=== PATIENT | female | born 1965 | race American Indian/Alaskan Native ===

== ENCOUNTER 2021-03-23 00:32 | Emergency (ER) | payer MEDICAID ==
[2021-03-23 01:26] VITALS: BP 153/84
[2021-03-23] MEDS ORDERED: SODIUM CHLORIDE 0.9% 1000 ML 1,000 ML ONE (03:11)
[2021-03-23] MEDS ORDERED: ACETAMINOPHEN 500 MG TAB PO ONE (04:01)
[2021-03-23] MEDS ORDERED: predniSONE 20 MG TAB PO ONE (04:01)
--- NOTE | 2021-03-23 04:39 | Emergency Department Report ---
ED Extremity Problem HPI - General Chief complaint: Extremity Problem,Nontraumatic Stated complaint: KNEE PAIN X2 DAYS Source: patient, EMS Mode of arrival: Wheelchair Limitations: No Limitations - History of Present Illness Initial comments: Patient is a 56-year-old -[place] female with a history of hypertension, iaj-knqtdfo-pyasbrxpb diabetes, paranoid schizophrenia and chronic osteoarthritis who presents to the ED with acute exacerbation of her chronic right knee pain after strenuous activity, painting for 2 days. Patient states that the pain is worse with any ambulation or any palpation of the right knee joint. Patient states that she usually takes naproxen tablets for her pain but that the current pain has not been controlled by her regular pain medication at home. Patient denies fall, traumatic injury, dizziness, syncope, chest pain, shortness of breath, fever, chills, nausea and vomiting, heavy lifting, low back pain or hip pain. MD Complaint: extremity pain (right knee), joint paint (right knee pain) -: Sudden, days(s) (2) Location: right (knee), lower extremity (right knee pain), knee (right knee) History of Same: Yes (chronic) -: Yes arthralgia (right knee), No fever, No associated dyspnea, No associated chest pain Radiation: none Severity scale (0 -10): 7 Quality: aching, sharp Consistency: constant Improves with: rest Worsens with: weight bearing, walking, exertion, palpation Associated Symptoms: denies other symptoms, arthralgias (right knee joint pain). denies: chest pain, shortness of breath, fever, myalgias, rash - Related Data Previous Rx's Medication Instructions Recorded Last Taken Type Baclofen 20 mg PO Q12H PRN #20 tablet 03/23/21 Unknown Rx Diclofenac Sodium 75 mg PO Q8H PRN #30 tablet. 03/23/21 Unknown Rx Allergies Allergy/AdvReac Type Severity Reaction Status Date / Time aspirin Allergy Nausea Verified 03/23/21 03:16 ED Review of Systems ROS: Stated complaint: KNEE PAIN X2 DAYS Other details as noted in HPI Constitutional: denies: chills, fever Eyes: denies: eye pain, eye discharge, vision change ENT: denies: ear pain, throat pain Respiratory: denies: cough, shortness of breath, wheezing Cardiovascular: denies: chest pain, palpitations Endocrine: no symptoms reported Gastrointestinal: denies: abdominal pain, nausea, diarrhea Genitourinary: denies: urgency, dysuria, discharge Musculoskeletal: arthralgia (Right knee pain), myalgia. denies: back pain, joint swelling Skin: denies: rash, lesions Neurological: denies: headache, weakness, paresthesias Psychiatric: denies: anxiety, depression Hematological/Lymphatic: denies: easy bleeding, easy bruising ED Past Medical Hx - Past Medical History Previous Medical History?: Yes Hx Hypertension: Yes Hx Diabetes: Yes (borderline) Hx Psychiatric Treatment: Yes (Paranoid Schizophrenia) - Surgical History Past Surgical History?: Yes Additional Surgical History: Hysterectomy - Medications Home Medications: Home Medications Medication Instructions Recorded Confirmed Last Taken Type Baclofen 20 mg PO Q12H PRN #20 tablet 03/23/21 Unknown Rx Diclofenac Sodium 75 mg PO Q8H PRN #30 tablet. 03/23/21 Unknown Rx ED Physical Exam - General Limitations: No Limitations General appearance: alert, in no apparent distress - Head Head exam: Present: atraumatic, normocephalic, normal inspection - Eye Eye exam: Present: normal appearance, PERRL, EOMI Pupils: Present: normal accommodation - ENT ENT exam: Present: normal exam, normal orophraynx, mucous membranes moist, TM's normal bilaterally, normal external ear exam - Neck Neck exam: Present: normal inspection, full ROM. Absent: tenderness - Respiratory Respiratory exam: Present: normal lung sounds bilaterally. Absent: respiratory distress, wheezes, rales, rhonchi, chest wall tenderness, accessory muscle use, decreased breath sounds, prolonged expiratory - Cardiovascular Cardiovascular Exam: Present: regular rate, normal rhythm, normal heart sounds. Absent: systolic murmur, diastolic murmur, rubs, gallop - GI/Abdominal GI/Abdominal exam: Present: soft, normal bowel sounds. Absent: tenderness, guarding, rebound, rigid, hyperactive bowel sounds, hypoactive bowel sounds, organomegaly - Extremities Exam Extremities exam: Present: normal inspection, tenderness (Palpable right knee tenderness with limited range of motion due to pain), normal capillary refill. Absent: full ROM (Limited range of motion of right knee joint due to pain) - Back Exam Back exam: Present: normal inspection, full ROM. Absent: tenderness, CVA tenderness (R), CVA tenderness (L), muscle spasm, paraspinal tenderness, vertebral tenderness - Neurological Exam Neurological exam: Present: alert, oriented X3, CN II-XII intact, normal gait, reflexes normal - Psychiatric Psychiatric exam: Present: normal affect, normal mood - Skin Skin exam: Present: warm, dry, intact, normal color. Absent: rash ED Course Vital Signs 03/23/21 01:23 Temperature 98.2 F Pulse Rate 89 Respiratory 17 Rate Blood Pressure 153/84 O2 Sat by Pulse 97 Oximetry ED Medical Decision Making - Radiology Data Radiology results: report reviewed, image reviewed [facility] [address] [place] [address] XRay Report Signed Patient: MYRTLE EVANS MR#: [id number] : 1965 Acct:[id number] Age/Sex: 56 / F ADM Date: 03/23/21 Loc: ED Attending Dr: Ordering Physician: LUISANA HERRING Date of Service: 03/23/21 Procedure(s): XR knee 3V RT Accession Number(s): [id number] cc: LUISANA HERRING Fluoro Time In Minutes: Right knee 3 views INDICATION: Knee pain FINDINGS: There is tricompartmental degenerative change with joint space narrowing in the medial compartment and patellofemoral joint. No acute fracture dislocation. IMPRESSION: Degenerative change in right knee Signer Name: Zia Alvarez MD Signed: 03/23/2021 4:37 AM Workstation Name: [id number] Transcribed By: CW Dictated By: ROBBI ALVAREZ MD Electronically Authenticated By: ROBBI ALVAREZ MD Signed Date/Time: 03/23/21436 DD/ 6 TD/TT: - Medical Decision Making This is a 56-year-old -[place] female with a history of hypertension, onh-jidkxie-gtbghjavg diabetes, paranoid schizophrenia and chronic osteoarthritis who presents to the ED with acute exacerbation of her chronic right knee pain after strenuous activity, painting for 2 days. Patient states that the pain is worse with any ambulation or any palpation of the right knee joint. Patient states that she usually takes naproxen tablets for her pain but that the current pain has not been controlled by her regular pain medication at home. In the ED, patient is alert and oriented x3 and is not in any distress. Patient was treated in the ED for pain and right knee x-ray showed no acute fractures or subluxations but degenerative joint disease. Patient right knee was splinted with Julio Cesar wrap and the patient was discharged home on pain medications and advised to follow-up with her primary care physician in 7 to 10 days for reevaluation or return to the ED immediately if symptoms get worse. - Differential Diagnosis Right knee sprain; chronic osteoarthritis; muscle strain of right knee; Critical care attestation.: If time is entered above; I have spent that time in minutes in the direct care of this critically ill patient, excluding procedure time. ED Disposition Clinical Impression: Osteoarthritis of right knee Qualifiers: Osteoarthritis type: primary Qualified Code(s): M17.11 - Unilateral primary osteoarthritis, right knee Sprain of right knee Qualifiers: Encounter type: initial encounter Involved ligament of knee: unspecified ligament Qualified Code(s): S83.91XA - Sprain of unspecified site of right knee, initial encounter Disposition: TO HOME OR SELFCARE Is pt being admited?: No Does the pt Need Aspirin: No Condition: Stable Instructions: Arthritis, Jqwu-[id number], Knee Sprain, Adult, [id number]-[id number] Additional Instructions: Right knee x-ray showed no acute fractures or subluxation but chronic degenerative joint disease. Therefore take medications with food, drink plenty of fluids and follow-up with your primary care physician in 5 to 7 days for reevaluation. Return to the ED immediately if symptoms get worse. Prescriptions: Baclofen 20 mg PO Q12H PRN #20 tablet PRN Reason: Muscle Spasm Diclofenac Sodium 75 mg PO Q8H PRN #30 tablet.dr ALLISON Reason: Pain , Severe (7-10) Referrals: [facility] [Provider Group] - 7-10 days Time of Disposition: 04:42 Print Language: FRISIAN
--- NOTE | 2021-03-23 04:42 | XRay Report ---
Right knee 3 views INDICATION: Knee pain FINDINGS: There is tricompartmental degenerative change with joint space narrowing in the medial comp artment and patellofemoral joint. No acute fracture dislocation. IMPRESSION: Degenerative change in right knee Signer Name: Zia Alvarez MD Signed: 03/23/2021 4:37 AM Workstation Name: [id number]
== END 2021-03-23 05:00 | disposition home or self-care (01) ==
LOC: ED 00:32
DX: S83.91XA Sprain of unspecified site of right knee, initial encounter (principal); M17.11 Unilateral primary osteoarthritis, right knee; I10 Essential (primary) hypertension; E11.9 Type 2 diabetes mellitus without complications; Z88.8 Allergy status to other drugs, medicaments and biological substances; Z79.899 Other long term (current) drug therapy; Z90.710 Acquired absence of both cervix and uterus; X58.XXXA Exposure to other specified factors, initial encounter; Y93.89 Activity, other specified; Y92.89 Other specified places as the place of occurrence of the external cause; Y99.8 Other external cause status
CPT/HCPCS: 29505; 73562; 99284; J7030; J7512

== ENCOUNTER 2021-06-27 01:21 | Emergency (ER) | payer MEDICAID ==
[2021-06-27] MEDS ORDERED: ACETAMINOPHEN 325 MG TAB PO ONE (03:23)
[2021-06-27] MEDS ORDERED: IBUPROFEN 400 MG TAB PO ONE (03:24)
--- NOTE | 2021-06-27 03:25 | Emergency Department Report ---
ED Lower Extremity HPI - General Chief Complaint: Extremity Injury, Lower Stated Complaint: left ankle, right knee pain Time Seen by Provider: 06/27/21 03:09 Source: patient, EMS ( EMS documentation not available at time of chart dictation ), RN notes reviewed Mode of arrival: Ambulatory Limitations: Physical Limitation - History of Present Illness Initial Comments: The patient was evaluated in the emergency department for symptoms described in the history of present illness. He/she was evaluated in the context of the global COVID-19 pandemic, which necessitated consideration that the patient might be at risk for infection with the virus that causes COVID-19. Institutional protocols and algorithms that pertain to the evaluation of patients at risk for COVID-19 are in a state of rapid change based on information released by regulatory bodies including the CDC and federal and state organizations. These policies and algorithms were followed during the patient's care in the emergency department. Please note that these policies, procedures and recommendations changed on a rapid basis. The patient is a 56-year-old female, presenting to the ER with a complaint of left ankle pain, and right knee pain, after accidental mechanical fall. The patient reports she was walking downstairs and fell onto her ankle and left knee. She denies additional injuries and complaints. Her pain is sharp and throbbing. It increases with palpation and decreases with rest. It does not radiate anywhere. No weakness or numbness. No additional complaints. Has not taking analgesia [id number]-gon-ilqgsmn. Is able to tolerate Motrin/ibuprofen/diclofenac. Complaint: knee injury, ankle injury -: Sudden, minutes(s) Injury: Knee: Left, Ankle: Left Type of Injury: blunt Place: home Severity: moderate Improves With: rest Worsens With: movement, palpation Context: fall Associated Symptoms: swelling. denies: numbness, tingling - Related Data Previous Rx's Medication Instructions Recorded Last Taken Type Acetaminophen [Non-Aspirin Extra 500 mg PO Q6HR PRN #30 tablet 06/27/21 Unknown Rx Strength] Ibuprofen [Motrin] 600 mg PO Q8H PRN #30 tablet 06/27/21 Unknown Rx Allergies Allergy/AdvReac Type Severity Reaction Status Date / Time aspirin Allergy Nausea Verified 03/23/21 03:16 ED Review of Systems ROS: Stated complaint: RIGHT KNEE PAIN Other details as noted in HPI Constitutional: denies: fever Eyes: denies: eye discharge ENT: denies: epistaxis Respiratory: denies: cough Cardiovascular: denies: chest pain Gastrointestinal: denies: abdominal pain Musculoskeletal: joint swelling, arthralgia, myalgia ED Past Medical Hx - Past Medical History Hx Hypertension: Yes Hx Diabetes: Yes (borderline) Hx Psychiatric Treatment: Yes (Paranoid Schizophrenia) - Surgical History Additional Surgical History: Hysterectomy - Medications Home Medications: Home Medications Medication Instructions Recorded Confirmed Last Taken Type Acetaminophen [Non-Aspirin Extra 500 mg PO Q6HR PRN #30 tablet 06/27/21 Unknown Rx Strength] Ibuprofen [Motrin] 600 mg PO Q8H PRN #30 tablet 06/27/21 Unknown Rx ED Physical Exam - General Limitations: No Limitations General appearance: alert, anxious, obese - Head Head exam: Present: atraumatic, normocephalic - Eye Eye exam: Present: normal appearance, EOMI. Absent: nystagmus - ENT ENT exam: Present: normal exam, normal orophraynx, mucous membranes moist, normal external ear exam - Neck Neck exam: Present: normal inspection, full ROM. Absent: tenderness, meningismus - Respiratory Respiratory exam: Present: normal lung sounds bilaterally. Absent: respiratory distress, wheezes, rales, rhonchi, stridor, decreased breath sounds - Cardiovascular Cardiovascular Exam: Present: regular rate, normal rhythm, normal heart sounds. Absent: bradycardia, tachycardia, irregular rhythm, systolic murmur, diastolic murmur, rubs, gallop - GI/Abdominal GI/Abdominal exam: Present: soft. Absent: distended, tenderness, guarding, rebound, rigid, pulsatile mass - Extremities Exam Extremities exam: Present: normal inspection, full ROM, tenderness (The left ankle has tenderness over the lateral malleolus. There is no foot tenderness. The Barth test is intact. The left knee is stable. The right knee is stable.), other (2+ pulses noted in the bilateral upper and lower extremities. There is no palpable cord. negative Homans sign. Muscular compartments are soft. The pelvis is stable.). Absent: calf tenderness - Back Exam Back exam: Present: normal inspection. Absent: tenderness, CVA tenderness (R), CVA tenderness (L), paraspinal tenderness, vertebral tenderness - Neurological Exam Neurological exam: Present: alert, oriented X3, other (No facial droop. Tongue midline. Extraocular movements intact bilaterally. Facial sensation intact to light touch in V1, V2, V3 distribution bilaterally. 5 and a 5 strength in 4 extremities. Sensation intact to light touch in 4 extremities.). Absent: motor sensory deficit - Psychiatric Psychiatric exam: Present: anxious - Skin Skin exam: Present: warm, dry, intact, normal color. Absent: rash ED Course Vital Signs 06/27/21 02:50 Temperature 98.3 F Pulse Rate 99 H Respiratory 18 Rate Blood Pressure 143/83 O2 Sat by Pulse 97 Oximetry - Reevaluation(s) Reevaluation #1: 06/27/21 04:21 Differential diagnosis, including but not limited to: Sprain, strain, fall, fracture, dislocation Assessment and plan: 56-year-old female, who is clinically sober, with a GCS of 15, presenting with isolated left ankle, and left knee pain, after mechanical fall. She is neurovascularly intact. Muscular compartments are soft. No other obvious injuries. She has been prescribed diclofenac in the past, endorses that she can tolerate NSAIDs. We will give this patient Tylenol and Motrin for pain. We will obtain x-ray of the right knee, and left ankle. Left ankle Aircast is ordered. Reassess after x-ray. Anticipate discharge with Aircast, crutches and/or cane, weightbearing as tolerated, instructions to follow-up with outpatient primary care and/or orthopedics. Patient counseled on natural history of blunt trauma. 06/27/21 05:11 X-ray showed no fracture or dislocation. Reiterated discharge instructions the patient. She articulated understanding. Weightbearing as tolerated. ED Lower Extremity MDM - Radiology Data Radiology results: pending, report reviewed, image reviewed RIGHT KNEE 3 VIEWS 0412 INDICATION: right knee pain fall COMPARISON: 03/23/2021 FINDINGS: No definite joint effusion is seen. No fractures or dislocations are noted. Mild degenerative changes are again seen. LEFT ANKLE 3 VIEWS 0416 INDICATION: Fall, left ankle pain COMPARISON: None available. FINDINGS: Mild soft tissue swelling is seen, more laterally. No fractures or dislocations are noted. Mild tarsal degenerative changes are seen. Mild inferior calcaneal spurri ng is noted. Signer Name: Hayes Castaneda MD Signed: 06/27/2021 3:51 AM RIGHT KNEE 3 VIEWS 0412 INDICATION: right knee pain fall COMPARISON: 03/23/2021 FINDINGS: No definite joint effusion is seen. No fractures or dislocations are noted. Mild degenerative changes are again seen. LEFT ANKLE 3 VIEWS 0416 INDICATION: Fall, left ankle pain COMPARISON: None available. FINDINGS: Mild soft tissue swelling is seen, more laterally. No fractures or dislocations are noted. Mild tarsal degenerative changes are seen. Mild inferior calcaneal spurring is noted. Signer Name: Hayes Castaneda MD Signed: 06/27/2021 3:51 AM Workstation Name: [id number] Critical care attestation.: If time is entered above; I have spent that time in minutes in the direct care of this critically ill patient, excluding procedure time. ED Disposition Clinical Impression: Left ankle pain, Fall, Right knee pain Disposition: HOME / SELF CARE / HOMELESS Is pt being admited?: No Does the pt Need Aspirin: No Condition: Good Instructions: Acute Knee Pain, Adult, Ankle Sprain Additional Instructions: Pain typically gets worse before gets better after blunt trauma. Rest, avoid heavy lifting and strenuous physical activities, use the cane as directed, and weight-bear as tolerated on the left lower extremity. Alternate ice packs and heat packs as needed for physical pain. Take the prescribed pain medication as needed and directed. If/when taking ibuprofen, make certain to take with food. Patient should follow-up with a primary care doctor or orthopedist within the next 7 to 10 days. Please return to the emergency room right away with new pain, worsened pain, migration of pain, projectile vomiting, change in mental status, confusion, inability to tolerate liquid feeds, new, worsened or different symptoms not present on the initial emergency room evaluation. Referrals: FELIPE ROBLES MD [Staff Physician] - 7-10 days VISH BARRIENTOS MD [Staff Physician] - 7-10 days Forms: Work/School Release Form(ED)
[2021-06-27 04:29] VITALS: BP 143/83
--- NOTE | 2021-06-27 04:56 | XRay Report ---
RIGHT KNEE 3 VIEWS 0412 INDICATION: right knee pain fall COMPARISON: 03/23/2021 FINDINGS: No definite joint effusion is seen. No fractures or dislocations are noted. Mild degenerati ve changes are again seen. LEFT ANKLE 3 VIEWS 0416 INDICATION: Fall, left ankle pain COMPARISON: None available. FINDINGS: Mild soft tissue swelling is seen, more laterally. No fractures or dislocations are noted. Mild tarsal degenerative changes are seen. Mild inferior calcaneal spurring is noted. Signer Name: Hayes Castaneda MD Signed: 06/27/2021 4:51 AM Workstation Name: [id number]
[2021-06-27] MEDS ORDERED: IBUPROFEN 400 MG TAB PO NR (05:45)
[2021-06-27] MEDS ORDERED: ACETAMINOPHEN 325 MG TAB PO NR (05:45)
== END 2021-06-27 07:29 | disposition home or self-care (01) ==
LOC: ED 01:21
DX: M25.572 Pain in left ankle and joints of left foot (principal); M25.561 Pain in right knee; I10 Essential (primary) hypertension; E11.8 Type 2 diabetes mellitus with unspecified complications; F20.9 Schizophrenia, unspecified; Z90.710 Acquired absence of both cervix and uterus; Z88.6 Allergy status to analgesic agent; W10.9XXA Fall (on) (from) unspecified stairs and steps, initial encounter; Y93.89 Activity, other specified; Y92.89 Other specified places as the place of occurrence of the external cause; Y99.8 Other external cause status
CPT/HCPCS: 99284